=== PATIENT | male | born 1985 | race Caucasian/White ===

== ENCOUNTER 2020-08-10 19:41 | Emergency (ER) | payer OTHER ==
[~2020-08-10] VITALS: Ht 167.6 cm; Wt 77.1 kg
[2020-08-10] MEDS ORDERED: BACTRIM DS TAB1 EACH PO (20:42)
[2020-08-10] MEDS ORDERED: NORCO 5-325 TA1 EAC2 PO (20:42)
[2020-08-10] MEDS ORDERED: KEFLEX500 M1 PO (20:42)
[2020-08-10] MEDS ORDERED: IBUPROFEN 800800 M1 PO (20:42)
[2020-08-10 21:36] VITALS: BP 135/70
== END 2020-08-10 21:37 | disposition home or self-care (01) ==
LOC: M.ERS 19:41
DX: L02.415 Cutaneous abscess of right lower limb (principal)

== ENCOUNTER 2020-09-12 15:52 | Emergency (ER) | payer OTHER ==
[~2020-09-12] VITALS: Ht 167.6 cm; Wt 77.1 kg
[~2020-09-12 15:52] MED LIST: BACTRIM DS TAB1 EACH PO; IBUPROFEN 800800 M1 PO; KEFLEX500 M1 PO; NORCO 5-325 TA1 EAC2 PO
[2020-09-12] MEDS ORDERED: CENTANY30 GM TOP (16:10)
[2020-09-12] MEDS ORDERED: DOXYCYCLINE 10100 MG PO (16:10)
[2020-09-12 16:16] VITALS: BP 143/89
== END 2020-09-12 16:16 | disposition home or self-care (01) ==
LOC: M.ERS 15:52
DX: L02.415 Cutaneous abscess of right lower limb (principal); L02.412 Cutaneous abscess of left axilla